=== PATIENT | male | born 1950 | race Caucasian/White ===

== ENCOUNTER 2019-09-09 15:33 | Inpatient (IN) ==
--- NOTE | 2019-09-09 16:39 | PROVIDER DOCUMENTATION ---
This chart was entered by Christina Leyva Scribe, acting as scribe for Wendy Locke MD. HPI-General Adult - General Chief Complaint: Extremity Pain Stated Complaint: SOB, CONGESTION, MALE LEG PAIN Time Seen by Provider: 09/09/19 16:01 Source: patient Allergies/Adverse Reactions: Patient Allergies Allergy/AdvReac Type Severity Reaction Status Date / Time Cephalosporins Allergy Intermediate ANAPHYLAXIS Verified 09/09/19 16:56 DANELLE Inhibitors Allergy Mild RASH Verified 09/09/19 16:56 latex Allergy Mild RASH Verified 09/09/19 16:56 Znwbpam-Waq-Rpy Reductase Allergy RASH Verified 09/09/19 16:56 Inhibitor Home Medications: Home Medication List Medication Instructions Recorded Confirmed Last Taken Type Aspirin EC 81 mg PO DAILY 09/09/19 09/09/19 Unknown History Losartan Potassium 50 mg PO DAILY 09/09/19 09/09/19 09/09/19 History Metoprolol Succinate E.r. [Toprol 75 mg PO DAILY 09/09/19 09/09/19 09/09/19 History Xl] - History of Present Illness -Gen Adult Nature of Presenting Problems: 69 y/o male presents to ED with R calf pain, SOB, and dark colored urine onset 1 week ago. Pt reports hx DVT. Pt states he takes 81 mg aspirin daily. Pt denies any other complaints. Pt reports walking exacerbates his symptoms. Pt is alert and oriented. Location of Pain/Injury: reports: lower extremity Pain Radiation: reports: no radiation Quality of Pain: reports: aching Severity: reports: moderate Onset/Duration: reports: 1 week ago Timing: reports: still present Context/Activities at Onset: reports: none Modifying Factors: worse with: palpation, other (walking) Associated Symptoms: reports: shortness of breath, other (R calf pain; dark colored urine) Similar Symptoms Previously?: Yes (hx DVT) Recently seen or treated by another doctor?: No Review of Systems - Adult - REVIEW OF SYSTEMS - ADULT Constitutional: denies: chills, fever Eyes: reports: no symptoms reported Ears, Nose, Mouth & Throat: reports: no symptoms reported Cardiovascular: denies: chest pain, palpitations Respiratory: reports: shortness of breath. denies: cough Gastrointestinal: reports: no symptoms reported Genitourinary: reports: other (dark colored urine). denies: incontinence Musculoskeletal: reports: other (R calf pain). denies: back pain, joint pain Integumentary: reports: no symptoms reported Neurological: reports: no symptoms reported Psychiatric: reports: no symptoms reported Endocrine: reports: no symptoms reported Hematologic/Lymphatic: reports: no symptoms reported Allergic/Immunologic: reports: no symptoms reported All Other Systems: Reviewed and Negative Past History - Adult - PAST MEDICAL HISTORY-ADULT Review of Records: reports: Old Records Reviewed, Nursing Assessment Review, Medications Reviewed Major Childhood Illnesses: reports: denies history Cardiovascular: reports: blood clots, HTN - PRIOR SURGERIES/PROCEDURES Surgical/Procedure History: reports: none - IMMUNIZATION STATUS Childhood Immunizations: See Nurse Assessment Flu Vaccine: See Nurse Assessment - FAMILY HISTORY Family History: reviewed, not pertinent - SOCIAL HISTORY Smoking: cigar Provider spent 3-5 mins advising pt. on dangers of tobacco.: Discussed manners to quit use, and f/u contacts for add'l counseling. Substance Use: none/never Alcohol Use Frequency: occasionally Living Situation: family Physical Exam-General - PHYSICAL EXAM-ADULT Initial Vital Signs Reviewed: Yes - CONSTITUTIONAL General Appearance: appears well, alert, no apparent distress - EYES Eyes: PERRL/EOMI, pink conjunctivae - HEAD, EARS, NOSE, MOUTH & THROAT HENMT: normocephalic/atraumatic, moist mucous membranes, normal ENT inspection - NECK Neck: non-tender, full range of motion - RESPIRATORY Respiratory: chest non-tender, lungs clear, normal breath sounds, no pleuratic chest pain, no respiratory distress, no accessory muscle use - CARDIOVASCULAR Cardiovascular: tachycardia - GASTROINTESTINAL (ABDOMEN) Abdominal Exam: normal bowel sounds, non tender, soft - MUSCULOSKELETAL Back Exam: normal inspection, no CVA tenderness, no vertebral tenderness Extremity: normal range of motion, calf tenderness (R), other (R lower leg 0.5 cm larger than L lower leg) - SKIN Integumentary: normal color, warm/dry - NEUROLOGIC Neurologic: grossly normal - PSYCHIATRIC Psych/Mental Status: normal mood/affect, normal thought content, normal thought process, oriented x 3 Progress - PLAN OF CARE/RESULTS Progress/Plan/Lab Results: Vital Signs - 8 hr 09/09/19 15:35 Temperature 98.1 F Pulse Rate 121 H Respiratory Rate 20 Blood Pressure 167/100 O2 Sat by Pulse Oximetry 93 L Orders Category Date Time Status CBC WITH ELECTRONIC DIFF [HEME] Stat Lab 09/09/19 16:49 Completed COMPREHENSIVE METABOLIC PANEL [CHEM] Stat Lab 09/09/19 16:49 Completed D-DIMER [COAG] Stat Lab 09/09/19 16:49 Received UA NIMS W/REFLEX CULT [URINALYSIS] Stat Lab 09/09/19 16:32 Uncollected Laboratory Tests 09/09/19 09/09/19 16:49 16:49 WBC 9.98 RBC 4.87 Hgb 15.0 Hct 44.6 MCV 91.6 MCH 30.8 MCHC 33.6 RDW Std Deviation 11.6 Plt Count 178 MPV 9.2 Immature Gran % (Auto) 0.3 Neut % (Auto) 75.8 H Lymph % (Auto) 10.8 L Randall % (Auto) 12.4 H Eos % (Auto) 0.6 Baso % (Auto) 0.1 Immature Gran # (Auto) 0.03 Neut # (Auto) 7.56 H Lymph # (Auto) 1.08 L Randall # (Auto) 1.24 H Eos # (Auto) 0.06 Baso # (Auto) 0.01 Sodium 140 Potassium 4.4 Chloride 103 Carbon Dioxide 23 L Anion Gap 14 BUN 22 Creatinine 1.6 H Estimated GFR/1.73 m2 43 BUN/Creatinine Ratio 14 Glucose 135 H Calculated Osmolality 285 Calcium 8.8 Total Bilirubin 0.68 AST 13 ALT 10 Alkaline Phosphatase 69 Total Protein 6.8 Albumin 3.6 Globulin 3.2 Albumin/Globulin Ratio 1.1 Result Diagrams: 09/09/19 16:49 09/09/19 16:49 - REASSESSMENT Reassessment #1 Time Reassessed: 18:25 Status: unchanged (d-dimer and s. creat results d/w pt and pt desires to get VQ scan. Lovenox ordered and will admit for observation.) - CONSULTS/PCP/HOSPITALIST Notification #1 *Consult/PCP/Hospitalist*: d/w Dr Guerra Time Discussed: 18:30 Consult Disposition: Admit (DR GUERRA TO INFORM NIGHT TEAM.) Departure - Departure Date of Disposition Decision: 09/09/19 Time of Disposition Decision: 18:37 DIAGNOSIS: Elevated d-dimer, Dyspnea, Right calf pain Disposition: ADMITTED INPATIENT 09 Certified Medical Emergency: Emergent Condition: Stable Referrals and Follow-Ups: Trevor Fowler MD [Primary Care Provider] - - Critical Care Note This patient required my direct & personal management of CC.: No Attestation - Physician/ ROSELYN Attestation Patient care was provided by Advanced Practice Provider:: No The physician spent face to face time with patient:: Yes Advanced Practice Provider documentation review:: Supervising physician onsite and consulted in the evaluation and care of this patient. The physician did have a face to face encounter with the patient. This chart was documented by the indicated scribe, (Christina Leyva Scribe) and accurately reflects the services I performed and decisions made by me, Wendy Locke MD, as attested by the provider's signature.
[2019-09-09 17:04] LABS: BASO# 0.01 X1000 (0.0-0.2); BASO% 0.1 % (0.0-0.8); EOS# 0.06 X1000 (0.0-0.7); EOS% 0.6 % (0.0-10.0); HEMATOCRIT 44.6 % (42.0-52.0); IMM GRAN# 0.03 X1000 (0.0-0.04); IMM GRAN% 0.3 % (0.0-0.5); LYMPH# 1.08 X1000 (1.2-3.4); LYMPH% 10.8 % (20.5-51.1); MCH 30.8 PG (27-31); MCHC 33.6 g/dL (33-37); MCV 91.6 FL (81-99); MONO# 1.24 X1000 (0.11-0.59); MONO% 12.4 % (1.7-9.3); MPV 9.2 FL (7.4-10.4); NEUT# 7.56 X1000 (1.4-6.5); NEUT% 75.8 % (42.2-75.2); PLT 178 X1000 (130-400); RBC 4.87 XMIL (4.7-6.1); RDW 11.6 % (11.5-14.5); WBC 9.98 X1000 (4.8-10.8)
[2019-09-09 17:22] LABS: ALB/GLOB RATIO 1.1; ALBUMIN 3.6 g/dL (3.5-5.0); CALCIUM 8.8 mg/dL (8.8-10.2); CREATININE 1.6 mg/dL (0.7-1.2); POTASSIUM 4.4 mmol/L (3.5-5.1); TOTAL BILIRUBIN 0.68 mg/dL (0.20-1.00); TOTAL PROTEIN 6.8 g/dL (6.3-8.3)
[2019-09-09] MEDS ORDERED: LOVENOX 1 MG/KG SUBQ ONE (18:09)
[2019-09-09] MEDS ORDERED: NS 1,000 ML IV ONE (18:29)
[2019-09-09] MEDS ORDERED: LOVENOX SUBQ ONE (18:30)
[2019-09-09 18:32] LABS: URINE SOURCE CLEAN CATCH
[2019-09-09 19:15] LABS: BILIRUBIN URINE NEGATIVE (NEGATIVE); BLOOD URINE LARGE (NEGATIVE); COLOR ORANGE; GLUCOSE URINE NEGATIVE (NEGATIVE); KETONE URINE NEGATIVE (NEGATIVE); LEUKOCYTES URINE NEGATIVE (NEGATIVE); NITRITE URINE NEGATIVE (NEGATIVE); PROTEIN URINE 200 mg/dL (NEGATIVE); SP GRAVITY URINE 1.024; TURBIDITY URINE TURBID (CLEAR); UR EPITHELIAL CELLS <10 /HPF (<10); URINE BACTERIA NEGATIVE /HPF; URINE RBC TNTC /HPF (<10); UROBILINOGEN URINE NORMAL (NORMAL)
[2019-09-09 19:21] LABS: URINE CASTS NONE SEEN; URINE CRYSTALS NONE SEEN; URINE YEAST PRESENT
[2019-09-09] MEDS ORDERED: XARELTO PO ONE (19:33)
--- NOTE | 2019-09-09 20:22 | Diag Imaging Result Doc PS360 ---
EXAM: CT RENAL STONE SEARCH HISTORY: hematuria TECHNIQUE: CT abdomen and pelvis without contrast COMPARISON: None. FINDINGS: The gallbladder has been removed. No focal hepatic normality identified on this noncontrasted exam although there may be fatty infiltration. No splenomegaly. No inflammation about the pancreas. Normal adrenal glands and aorta. No perinephric inflammation. No renal stones. No hydronephrosis. No bowel obstruction. No ascites. No inflammation in the right lower quadrant. Urinary bladder is moderately distended and appears normal. The prostate measures 5.2 cm. Small pelvic nodes. Prominent degenerative spine changes with multilevel marked spinal stenosis. IMPRESSION: Cholecystectomy This exam was performed using automated exposure control, adjustment of mA or kV according to patient size, and/or use of iterative reconstruction technique. Electronically signed by Sha Wheatley 09/09/2019 8:20 PM
--- NOTE | 2019-09-09 20:56 | HISTORY AND PHYSICAL ---
REASON FOR ADMISSION: One-week history of right posterior leg pain and 2-day history of shortness of breath. HISTORY OF PRESENT ILLNESS: Mr. Laith Sexton is a 69-year-old male with past medical history of prior DVT and hypertension, who comes in today complaining of 1-week history of posterior right lower extremity pain, which he said started spontaneously. No history of long- distance travel or trauma. No recent change in medication or use of [id number] medication. No redness, no swelling. No fever, no chills. He denies any cough, but states that over the last 2 days he has been having profound shortness of breath with mild exertion. Prior to this, he had no limitations as far as his exercise tolerance, but now he can barely go today more than 15 feet before he becomes profoundly short of breath. No PND, orthopnea, leg swelling, or chest pain. No dizziness. No palpitations. REVIEW OF SYSTEM: A 12 system review was done. Positive findings per HPI. No weight loss. No night sweats. ALLERGIES: Cephalosporin, DANELLE inhibitors, latex, and statins. HOME MEDICATIONS: 1. He is on aspirin 81 mg daily which he takes daily. 2. He also takes losartan 50 mg. 3. Metoprolol 75 mg. SURGICAL HISTORY: Patient has only had cholecystectomy and tonsillectomy. SOCIAL HISTORY: Smokes about 2 cigars a week and drinks 1 beer every other day. No illicit drug use. , lives with . FAMILY HISTORY: Notable for only type 2 diabetes and heart disease. No cancer or blood clot history. DIAGNOSTIC STUDIES: D-dimer greater than 20. White count 9000, hemoglobin 15, hemoglobin 44, platelets 178,000, 76% neutrophils. BUN is 22, creatinine 1.6, GFR 43. Urinalysis shows too- ulnyrdfh-cl-enfom RBCs, 10-[address] renal stone search was ordered and is pending. PHYSICAL EXAMINATION: VITAL SIGNS: His blood pressure is 167/100, heart rate was 121, respiratory rate is 20, temperature is 98.1 degrees, 93% on room air. GENERAL: He is a pleasant obese middle-aged man, not in acute distress. He is alert and oriented to person, place, and time with normal mood and affect. HEENT: Head is normocephalic, atraumatic. Eyes: RONNY. EOMI. Anicteric. Not pale. ENT exam is grossly normal. NECK: Supple. No JVD or carotid bruit or thyromegaly. No cervical or supraclavicular lymph nodes. CHEST: Clear to auscultation with good air entry to both lung shelby. CARDIOVASCULAR: First and second heart sounds heard. No gallops, murmurs, rubs. Rhythm is regular. ABDOMEN: Protuberant, soft, nontender. No splenomegaly. Bowel sounds are normal. No CVA tenderness. RECTAL: Exam deferred at this time. EXTREMITIES: Surprisingly, no edema, no clubbing, no peripheral cyanosis. No erythema. Tenderness only around the lower portion of his right gastrocnemius, but no superficial veins noted. NEUROLOGICAL: No gross focal deficits. SKIN: Intact with no breakdown, lesions, or erythema. MUSCULOSKELETAL: Exam is grossly normal. ASSESSMENT: 1. Acute dyspnea with a prior history of deep vein thrombosis, tachycardia, elevated D-dimer. The patient has a 67% of having a PE based on these findings. For now, we will start him on Xarelto p.o. He is currently stable at this point in time. I have ordered a troponin for risk stratification and echo in the morning. Continue with IV fluid resuscitation and schedule patient for CT angiogram in the morning to document and document degree of severity of PE which I think is highly probable in this patient. A venous Doppler study can be ordered at the discretion of the primary care team, but I do not think it will change the management. Selected thrombophilia workup can be ordered at the discretion of primary care team since we may get several false positives, and this should be addressed after maybe 2 to 3 months into his treatment. No precipitating risk factors to control in this case. 2. Hematuria. This is worrisome at his present age and the fact that he smokes for a neoplasm. Urology needs to be consulted. I have ordered a CT renal stone search. 3. Hypertension. Resume patient's blood pressure medication. Withhold aspirin. cc: Cecilio Euceda MD MTDD
[2019-09-09] MEDS ORDERED: DUONEB (A & A) INH PRN (21:01)
[2019-09-09] MEDS ORDERED: ZOFRAN IV PRN (21:01)
[2019-09-09] MEDS ORDERED: DUONEB (A & A) INH ONE (21:01)
[2019-09-09] MEDS ORDERED: TYLENOL PO PRN (21:01)
[2019-09-09] MEDS: NS 1,000 ML IV SCH (21:35)
[2019-09-10] MEDS: NS 1,000 ML IV SCH (03:53)
[2019-09-10 06:01] LABS: BASO# 0.02 X1000 (0.0-0.2); BASO% 0.2 % (0.0-0.8); EOS# 0.03 X1000 (0.0-0.7); EOS% 0.3 % (0.0-10.0); HEMOGLOBIN 13.7 g/dL (14.0-18.0); IMM GRAN# 0.03 X1000 (0.0-0.04); IMM GRAN% 0.3 % (0.0-0.5); LYMPH# 1.42 X1000 (1.2-3.4); LYMPH% 14.6 % (20.5-51.1); MCH 30.9 PG (27-31); MCHC 33.4 g/dL (33-37); MCV 92.6 FL (81-99); MONO# 1.16 X1000 (0.11-0.59); MONO% 11.9 % (1.7-9.3); MPV 9.5 FL (7.4-10.4); NEUT# 7.06 X1000 (1.4-6.5); NEUT% 72.7 % (42.2-75.2); PLT 183 X1000 (130-400); RBC 4.43 XMIL (4.7-6.1); RDW 11.5 % (11.5-14.5); WBC 9.72 X1000 (4.8-10.8)
[2019-09-10 06:12] LABS: INR 1.52; PROTIME 18.6 Seconds (11.0-16.0)
[2019-09-10 06:13] LABS: PTT 39.8 Seconds (22.3-41.8)
[2019-09-10 06:27] LABS: ALBUMIN 3.1 g/dL (3.5-5.0); CALCIUM 8.5 mg/dL (8.8-10.2); CREATININE 1.5 mg/dL (0.7-1.2); POTASSIUM 4.4 mmol/L (3.5-5.1); TOTAL BILIRUBIN 0.9 mg/dL (0.20-1.00); TOTAL PROTEIN 6.2 g/dL (6.3-8.3)
--- NOTE | 2019-09-10 08:19 | Diag Imaging Result Doc PS360 ---
CT ANGIOGRM PULMONARY ARTERIES - 09/10/2019 INDICATION: Probable PE TECHNIQUE: Axial CT images were obtained after administering intravenous contrast. Coronal MIP images were generated. COMPARISON: None FINDINGS: There are numerous large pulmonary emboli bilaterally involving every lobe are and segmental artery. There are numerous occlusive emboli in segmental arteries. No adenopathy. Heart and great vessels are normal. The lungs and airways are clear. There are moderate degenerative changes of the spine. No acute or suspicious bony lesion. IMPRESSION: Severe bilateral acute pulmonary emboli with a high clot burden. This report was discussed with RT Angela on 09/10/2019 at 8:17 AM and was readback. This exam was performed using automated exposure control, adjustment of mA or kV according to patient size, and/or use of iterative reconstruction technique Electronically signed by Corona Ruiz 09/10/2019 8:17 AM
[2019-09-10] MEDS: TOPROL XL PO SCH (09:18)
--- NOTE | 2019-09-10 10:31 | PROGRESS NOTE ---
DATE: 09/10/2019 SUBJECTIVE: This patient is resting comfortably in bed. He is not complaining of chest pain or shortness of breath. He does have gross hematuria and apparently this hematuria started last Tuesday, 2 days ago. We have a pulmonary arteriogram that showed severe bilateral acute pulmonary emboli with a high clot burden. His vital signs are really good. Actually, he is stable. He is on room air and his blood pressure seems to be stable as well as his heart rate and respiratory rate. He received a dose of anticoagulation yesterday night. We have requested an evaluation by the urology department and also hematology/oncology department. I will not give him any kind of anticoagulation right now since this patient is stable and I am not quite sure if this patient is going for any kind of procedure today with urology but probably he will not go for a procedure since he is having these bilateral PEs, so I will wait for recommendations. His hemoglobin is stable at 13.7, dropped from 15, which is basically his baseline. Kidney function, his creatinine is 1.5 and this is chronic. He has been having kidney problems since 2011. OBJECTIVE: Vital Signs: Temperature 98.4 degrees, pulse 105, respiratory rate by me 16, blood pressure 192/79, oxygen saturation 96 on room air. HEENT: Head is normocephalic. No trauma. PERRLA. Neck: Supple. No JVD. No masses. Central trachea. Chest: Clear to auscultation. No wheezing. No rales. Abdomen: Soft, nontender, nondistended. No hepatosplenomegaly. Extremities: He does have some discomfort at the level of the right calf. No clubbing, no cyanosis. Neurological Examination: The patient is alert. He is oriented x3. No focal deficits. Laboratory: WBC 9.7, hemoglobin 13.7, hematocrit 41, platelets 183,000. Sodium 139, potassium 4.4, chloride 105, bicarbonate 21, BUN 21, creatinine 1.5, glucose 136, calcium 8.5. AST 13, ALT 8, alkaline phosphatase 60, albumin 3.1. ASSESSMENT AND PLAN: 1. Shortness of breath with bilateral pulmonary embolism. He received a dose of anticoagulation yesterday night. I will call right now the urology department to notify them that this patient has hematuria. His hemoglobin is good at 13.7, down from 15, which is his baseline. Probably, we need to keep this patient on anticoagulation for a few days before doing any kind of procedure, but, again, I will ask the urology department about it. We can monitor the hemoglobin and hematocrit frequently, and transfuse as needed. 2. Hematuria that started last Tuesday, 2 days ago. Urology has been consulted as above. Renal CT scan did not show any stones or hydronephrosis. 3. Hypertension. We are holding this patient's aspirin. Continue with metoprolol. His blood pressure seems to be elevated. cc: Pablito Alva MD
[2019-09-10] MEDS: HEPARIN 25,000 UNITS/D5W 25,000 UNIT/250 ML IV.SOLN IV SCH (13:05)
--- NOTE | 2019-09-10 14:05 | CONSULTATION ---
DATE OF CONSULTATION: 09/10/2019 ATTENDING AND REFERRING PHYSICIAN: Hospitalist. HISTORY OF PRESENT ILLNESS: This 69-year-old male was admitted with significant deep venous thrombosis. He has a several day history of increasing right leg pain. He states it felt just like when he had a DVT on the left side but not as much swelling. He states it steadily got worse. He was seen in the emergency room where a pulmonary angiogram revealed significant clots in the each lung. The patient states that several days after having the shortness of breath and leg pain he noted dark colored urine. He then started having bloody urine. He states this has never occurred before. He is followed in the [facility] and was last seen in April 2019. He has a history of elevated PSA and underwent prostate ultrasound and biopsies in 2014 that were benign. His PSAs since then have been stable and was 4.7 in April 2019. He states he feels well but when he does exert he gets short of breath. PAST MEDICAL HISTORY: Hypertension. CURRENT MEDICATIONS: Include metoprolol and losartan, 81 mg aspirin a day. PAST SURGICAL HISTORY: Cholecystectomy, tonsillectomy, wisdom teeth extraction. SOCIAL HISTORY: Two cigars a week and social use of alcohol. ALLERGIES: He is allergic to cephalosporins, DANELLE inhibitors, latex and statins. REVIEW OF SYSTEMS: He denies any problem with heart disease, strokes, seizures, or bowel problems. PHYSICAL EXAMINATION: General: A mildly obese, age apparent, normally developed white male, oriented in all ways and cooperative. HEENT: Normal for age. Lungs: Clear. Cardiovascular: Regular rate and rhythm. Abdomen: Protuberant, soft, nontender. No hepatosplenomegaly or masses. Normal bowel sounds. : Circumcised male. Both testes are down. Scrotal exam is normal. No inguinal hernias. Rectal: Deferred today. In April 2019 was normal, smooth and symmetric. Again, PSA was stable (4.74). Extremities: No C, C or E. Neuro: No focal deficits. DIAGNOSTIC DATA: CT stone search did not reveal any kidney stones or abnormalities of the kidneys. Laboratory evaluation has a white count of 9.72, hemoglobin of 13.7, hematocrit of 41 and platelets are 183,000. Serum electrolytes have a sodium 139, potassium 4.4, chloride 105, BUN 21, creatinine 1.5. Glucose is 136. Urinalysis had too numerous to count red cells and 10 to 15 white cells. Urine culture is pending. Impression BILATERAL: 1. Pulmonary embolism. 2. Hematuria. 3. History of elevated PSA with benign prostate biopsy. RECOMMEND: Anticoagulate to treat the pulmonary embolism. Will follow. Thank you for this consultation. cc: Jey Harper MD
--- NOTE | 2019-09-10 19:31 | ECHO REPORT ---
ORDER DATE: 09/09/2019 INTERPRETING PHYSICIAN: Dr. Castillo CLINICAL INDICATIONS: Dyspnea. Pulmonary embolism. M-MODE MEASUREMENTS: Left ventricle end diastole: 5.7 cm. Left ventricle end systole: 3.4 cm. Posterior wall: 1.0 cm. Interventricular septum: 1.1 cm. SUMMARY OF 2-DIMENSIONAL IMAGIN. The left ventricular function is normal. Ejection fraction is estimated at 63%. There is no definite wall motion abnormality. During the study PVCs were noted. 2. Right ventricle appears to be normal. 3. The aortic valve looks normal. Color flow mapping unremarkable. 4. Mitral valve looks normal. Color flow mapping unremarkable. 5. Pulse wave Doppler of mitral inflow showed mild reversal of the E and the A ratio. 6. The tissue Doppler of septal and lateral mitral annulus averages 7 1/2 cm. 7. The pulmonic valve is suboptimally visualized. 8. There is no diastolic dysfunction. 9. The atria appear to be normal. 10.Tricuspid valve shows a mild degree of regurgitation. 11.Pulmonary pressure is estimated to be somewhere in the neighborhood of 63 mmHg. Estimation is difficult. The inferior vena cava is suboptimally visualized. 12.Optison was added to help visualize the endocardium. The LV function is really hyperdynamic, probably in the order of 65% to 70%. CONCLUSIONS: In summary, this study shows: 1. Hyperdynamic left ventricle. Ejection fraction is 65% to 70%. 2. No significant valvular abnormality. 3. Suspected pulmonary hypertension, grossly estimated at 63 mmHg. 4. No diastolic dysfunction. Clinical correlation is recommended. cc: MD Cecilio Syed MD
[2019-09-11] MEDS: HEPARIN 25,000 UNITS/D5W 25,000 UNIT/250 ML IV.SOLN IV SCH (04:56)
[2019-09-11] MEDS ORDERED: HEPARIN 25,000 UNITS/D5W 25,000 UNIT/250 ML IV.SOLN IV SCH ×2 (05:00→20:22)
[2019-09-11 05:53] LABS: BASO# 0.02 X1000 (0.0-0.2); BASO% 0.2 % (0.0-0.8); EOS# 0.09 X1000 (0.0-0.7); EOS% 1.1 % (0.0-10.0); HEMATOCRIT 40.5 % (42.0-52.0); HEMOGLOBIN 13.7 g/dL (14.0-18.0); IMM GRAN# 0.02 X1000 (0.0-0.04); IMM GRAN% 0.2 % (0.0-0.5); LYMPH# 1.46 X1000 (1.2-3.4); LYMPH% 17.2 % (20.5-51.1); MCHC 33.8 g/dL (33-37); MCV 91.6 FL (81-99); MONO# 1.16 X1000 (0.11-0.59); MONO% 13.6 % (1.7-9.3); MPV 9.8 FL (7.4-10.4); NEUT# 5.76 X1000 (1.4-6.5); NEUT% 67.7 % (42.2-75.2); PLT 172 X1000 (130-400); RBC 4.42 XMIL (4.7-6.1); RDW 11.2 % (11.5-14.5); WBC 8.51 X1000 (4.8-10.8)
[2019-09-11 06:02] LABS: ALBUMIN 3.1 g/dL (3.5-5.0); CALCIUM 8.2 mg/dL (8.8-10.2); CREATININE 1.6 mg/dL (0.7-1.2); POTASSIUM 4.3 mmol/L (3.5-5.1); TOTAL BILIRUBIN 0.62 mg/dL (0.20-1.00); TOTAL PROTEIN 6.1 g/dL (6.3-8.3)
[2019-09-11] MEDS: TOPROL XL PO SCH (08:56)
[2019-09-11] MEDS: MIRALAX PO SCH (13:01)
--- NOTE | 2019-09-11 14:48 | PROGRESS NOTE ---
DATE: 09/11/2019 INTERVAL HISTORY: The patient quite comfortable at rest. He has not been up see if he has any dyspnea on exertion yet. Urine remains dark, but no further vita hematuria. No other no new complaints. No other acute events overnight. REVIEW OF SYSTEMS: Twelve point review of systems negative except as per interval history. LABS: WBC 8.5, hemoglobin 13.7, hematocrit 40.5, platelets 172,000, last PTT 84.4. Basic metabolic panel significant only for a bicarbonate 24, BUN 22, creatinine 1.6, glucose 121. VITALS: T-max 99.5 degrees, pulse 85, respirations 20, blood pressure 130/74, O2 saturation 93% on room air. PHYSICAL EXAMINATION: General: No acute distress. Vitals: As above. HEENT: Normocephalic, atraumatic. Moist mucous membranes. No cervical adenopathy. Cardiovascular: Regular rate and rhythm. No murmurs noted. Pulmonary: Clear to auscultation bilaterally. No wheezing, rales, or rhonchi. Abdomen: Soft, nontender, nondistended. Bowel sounds positive. Extremities: Peripheral pulses intact. No clubbing or cyanosis. Trace to 1+ edema of the right lower extremity slightly more than the trace edema on the left. Neurologic: Cranial nerves grossly intact. No focal deficits identified. Psychiatric: Normal mood and affect. Awake, alert, oriented x3. Skin: No new rashes or lesions identified. ASSESSMENT AND PLAN: 1. Significant bilateral pulmonary emboli. Dyspnea improved. Is on heparin drip. Pretty stable from this standpoint, but continue heparin drip until hematuria issue is settled. 2. Hematuria. The patient with gross hematuria on admission. Started 2 days prior to admission. CT did not show any obvious pathology. This morning his urine appeared dark but without obvious vita hematuria despite anticoagulation as above. Continue to monitor urine. Recheck urinalysis in the morning and await further Urology recommendations. 3. Hypertension. Continue home metoprolol. Blood pressure control acceptable. 4. CKD 3. Appears to be stable. 5. Pulmonary hypertension. No pulmonary hypertension. No previous to compare to, so uncertain if this is chronic or related to the PE. 6. Disposition. If the patient has no further hematuria, then may be able to transition to [facility] and discharge tomorrow but will see what his urine does and what urology recommends.
[2019-09-12] MEDS ORDERED: HEPARIN 25,000 UNITS/D5W 25,000 UNIT/250 ML IV.SOLN IV SCH (06:30)
[2019-09-12 07:53] LABS: BASO# 0.01 X1000 (0.0-0.2); BASO% 0.1 % (0.0-0.8); EOS# 0.07 X1000 (0.0-0.7); EOS% 0.9 % (0.0-10.0); HEMOGLOBIN 13.5 g/dL (14.0-18.0); IMM GRAN# 0.02 X1000 (0.0-0.04); IMM GRAN% 0.3 % (0.0-0.5); LYMPH# 1.24 X1000 (1.2-3.4); LYMPH% 16.5 % (20.5-51.1); MCH 30.8 PG (27-31); MCHC 33.8 g/dL (33-37); MCV 91.1 FL (81-99); MONO# 0.88 X1000 (0.11-0.59); MONO% 11.7 % (1.7-9.3); NEUT# 5.28 X1000 (1.4-6.5); NEUT% 70.5 % (42.2-75.2); PLT 191 X1000 (130-400); RBC 4.39 XMIL (4.7-6.1); RDW 11.2 % (11.5-14.5)
[2019-09-12 08:12] LABS: CREATININE 1.7 mg/dL (0.7-1.2); POTASSIUM 4.1 mmol/L (3.5-5.1)
[2019-09-12 08:19] VITALS: BP 131/77
[2019-09-12] MEDS: MIRALAX PO SCH (09:36)
[2019-09-12] MEDS: TOPROL XL PO SCH (09:36)
[2019-09-12] MEDS ORDERED: ELIQUIS PO SCH (10:00)
[2019-09-12 11:46] LABS: URINE SOURCE CLEAN CATCH
[2019-09-12 11:52] LABS: BILIRUBIN URINE NEGATIVE (NEGATIVE); BLOOD URINE LARGE (NEGATIVE); COLOR ORANGE; GLUCOSE URINE NEGATIVE (NEGATIVE); KETONE URINE NEGATIVE (NEGATIVE); LEUKOCYTES URINE NEGATIVE (NEGATIVE); NITRITE URINE NEGATIVE (NEGATIVE); PROTEIN URINE 70 mg/dL (NEGATIVE); SP GRAVITY URINE 1.019; TURBIDITY URINE HAZY (CLEAR); UR EPITHELIAL CELLS <10 /HPF (<10); URINE BACTERIA NEGATIVE /HPF; URINE RBC TNTC /HPF (<10); URINE WBC <10 /HPF (<10); UROBILINOGEN URINE NORMAL (NORMAL)
[2019-09-12 12:37] LABS: URINE YEAST NONE SEEN
--- NOTE | 2019-09-12 15:49 | Extremity Venous Study ---
PROCEDURE NAME: Venous U/S Bilateral Legs - 09/10/2019 DATE: 09/10/2019. REFERRING PHYSICIAN: Dr. Slade READING PHYSICIAN: Dr. Baker. AERIAL PHOTOGRAPHER: Joann. INDICATIONS: Multiple pulmonary emboli. FINDINGS: There is extensive acute thrombosis of the right distal common femoral vein, the superficial femoral, popliteal, posterior tibial and peroneal as well as gastrocnemius veins. Some flow is preserved in the distal common femoral vein, but otherwise the remaining portions of the deep veins are without flow. On the left side, there is chronic nonocclusive and somewhat compressible thrombus in the left popliteal vein. Flow is preserved, and there are chronic changes in small superficial veins of the thigh. INTERPRETATION: Extensive acute DVT of the deep veins of the right lower extremity as described above with chronic DVT and SVT on the left side as described above. There is no prior study for comparison. cc: MD Pablito Jean Baptiste MD
--- NOTE | 2019-09-13 18:48 | HEMO/ONC CONSULTATION ---
DATE: 09/10/2019 ADMITTING PHYSICIAN: Dr. Euceda. REQUESTING PHYSICIAN: Dr. Euceda. We appreciate this consult. CHIEF COMPLAINT: Bilateral pulmonary emboli. HISTORY OF PRESENT ILLNESS: Mr. Sexton is a very pleasant, 69-year-old, male, with a history of prior DVT and hypertension. The patient presented to [facility] Emergency Department with complaints of one-week history of posterior right lower extremity pain. The patient reports no recent history of long distance travel or trauma. Also, the patient reports that he has had profound shortness of breath and could not ambulate more than 15 feet without stopping to rest. The patient denies chest pain at that time. In the emergency department, the patient underwent pulmonary arteriogram, which revealed severe bilateral acute pulmonary emboli with a high clot burden. The patient was admitted for bilateral pulmonary emboli. We are consulted for the same and for recommendation concerning anticoagulation. PAST MEDICAL HISTORY: 1. Hypertension. 2. History of DVT. PAST SURGICAL HISTORY: 1. Cholecystectomy. 2. Tonsillectomy. SOCIAL HISTORY: The patient smokes two cigars weekly and drinks one beer every other day. He has no history of illicit drug use. MEDICATIONS ON ADMISSION: 1. Aspirin 81 mg. 2. Losartan. 3. Metoprolol. ALLERGIES: Cephalosporins, DANELLE inhibitors, latex, and statins. REVIEW OF SYSTEMS: A 14-point review of systems was obtained and is negative, except for mentioned in the HPI. PHYSICAL EXAMINATION: Mr. Sexton is a pleasant 69-year-old male who is lying supine in bed in no immediate distress.Vital Signs: Temperature 98.4 degrees, blood pressure 192/79, heart rate 105, respirations 28, O2 saturation 96% on room air. HEENT: Normocephalic, atraumatic. Mucous membranes are pink and moist. Sclerae are anicteric. Extraocular movements intact. Neck: Supple. Lungs: Clear to auscultation bilaterally. Chest expansion is equal bilaterally. Cardiovascular: S1, S2 is heard. No murmurs, rubs, or gallops. Abdomen: Soft, nondistended, nontender. Bowel sounds positive in all quadrants. No rebound or guarding is noted. Extremities: Without clubbing or cyanosis. The patient does have left lower extremity trace edema. Neurologic: The patient is awake, alert, and oriented x3. He has no focal deficit. LABORATORY DATA: Hemoglobin 13.7, hematocrit 41.0, white blood cell count 9.72, platelets 183,000. Sodium 139, potassium 4.4, chloride 105, CO2 is 21, BUN 21, creatinine 1.5, and glucose is 136. D-dimer is greater than 20.00. IMAGING STUDIES: CTA of the pulmonary arteries reveals severe bilateral acute pulmonary emboli with high clot burden. ASSESSMENT AND PLAN: 1. Severe acute bilateral pulmonary emboli with high clot burden. The patient does have a history of deep vein thrombosis. The patient will return to anticoagulation. We will monitor his CBC closely. The patient will be placed on heparin with a lower goal for his PTT at this time. We will switch the patient to p.o. anticoagulant when appropriate 2. Hematuria. Urology has been consulted and agrees that the patient needs anticoagulation at this time. 3. Hypertension, per hospitalist. 4. We will follow along with you and make further recommendations pending outcomes. The above reflects the history, exam, assessment, and plan of Dr. Chew. Dictated by TRICIA Laura for Sharad Chew MD cc: TRICIA Laura MD
--- NOTE | 2019-09-15 14:47 | DISCHARGE SUMMARY ---
ADMISSION DATE: 09/09/2019 DISCHARGE DATE: 09/12/2019 CONSULTS: Hematology, Dr. Chew, Urology, Dr. Harper. PERTINENT STUDIES: Renal CT with no acute process. Echocardiogram with normal EF, elevated pulmonary pressures at 63. No significant valvular pathology. No diastolic dysfunction. CTA chest with severe bilateral acute pulmonary emboli with high clot burden. Initial hemoglobin 15, repeat 13.7. Final hemoglobin 13.5. Admission creatinine 1.6. Discharge creatinine 1.7. Urinalysis with significant hematuria. DISCHARGE DIAGNOSES: 1. Bilateral acute pulmonary thromboembolisms. 2. Hematuria. 3. Hypertension. 4. Chronic kidney disease 3. 5. Pulmonary hypertension. HOSPITAL COURSE: Patient with history of prior DVT. Complained of 1 week of posterior right lower extremity pain. Denied cough, but had 2 days of significant shortness of breath with exertion. On initial evaluation, he was found to have a large bilateral pulmonary embolism and extensive DVT of the right lower extremity as well as chronic DVT and superficial venous thrombosis on the left side. The patient was hemodynamically stable, never had any significant hypoxia. He was placed initially on heparin drip as patient was already having hematuria before being placed on a blood thinner. Despite being placed on blood thinner, patient's hematuria improved. He never had any urinary passage of clots or urinary hesitancy. Urology was involved, but felt that no acute intervention was necessary. He had slight drop in his hemoglobin just after admission from 15 to 13.7, but no significant drop after that. As patient's hematuria was improving despite anticoagulation, his hemodynamic and respiratory status were stable and Urology thought there was no need for an immediate intervention. He was transitioned to oral Eliquis and discharged home. Given his smoking status, there was some concern for malignancy, although no obvious mass was seen on CT. The patient will follow up with his PCP and with Urology for likely cystoscopy in the future. DISCHARGE VITALS: Temp 99 degrees, pulse 79, respirations 14, blood pressure 131/77, O2 saturation 98% on room air. DISCHARGE DIET: Regular. DISCHARGE MEDICATIONS: 1. Losartan 50 mg p.o. daily. 2. Toprol-XL 75 mg p.o. daily. 3. Eliquis 10 mg p.o. b.i.d. x7 days, then 5 mg b.i.d. indefinitely. FOLLOWUPS AND PLAN: The patient discharging home on oral Eliquis for PE and DVT. The patient to follow up with PCP as well as Urology for eventual evaluation of his hematuria. The patient to return to care if significant dyspnea or bleeding develop.
== END 2019-09-12 13:10 | disposition home or self-care (01) | DRG 176 ==
LOC: ED 15:33 → SUATTDRO 20:24 → 2N 20:24 → 1N 09-11 18:25
PROVIDERS: ATTEND Internal Medicine